=== PATIENT | female | born 1970 | race Caucasian/White ===

== ENCOUNTER 2017-03-06 09:00 | Inpatient (IN) | payer OTHER ==
[2017-03-13] MEDS ORDERED: Midazolam 2 MG/2 ML VIAL ONE (07:08)
[2017-03-13] MEDS ORDERED: Propofol 10 mg/ml Inj (20 ML) ONE (07:08)
[2017-03-13] MEDS ORDERED: ceFAZolin IV 2 gm in Dextrose 1 GM/50 ML BAG IVPB ONE (07:46)
[2017-03-13] MEDS ORDERED: Lactated Ringer's 1,000 ML IV ONE ×3 (07:57→13:00)
[2017-03-13] MEDS ORDERED: Bacitracin 150,000 UNIT in Sodium Chloride 0.9% Irrig 3,000 ML IR SCH (08:00)
[2017-03-13] MEDS ORDERED: Morphine 4 MG/ML VIAL ONE (10:43)
[2017-03-13] MEDS ORDERED: Lidocaine Hydrochloride 5 ML INJ ONE (10:48)
[2017-03-13] MEDS ORDERED: Neostigmine Methylsulfate 3mg/3ml Syringe IV ONE (10:49)
[2017-03-13] MEDS ORDERED: Phenylephrine 10 mg/ml Inj ONE (10:49)
[2017-03-13] MEDS ORDERED: Lactated Ringer's 1,000 ML IV SCH (11:30)
[2017-03-13] MEDS ORDERED: HYDROmorphone 0.5 mg/0.5 ml ISec IVP PRN ×2 (11:30→12:39)
[2017-03-13] MEDS ORDERED: HYDROmorphone 0.5 mg/0.5 ml ISec IVP ONE (12:22)
[2017-03-13] MEDS ORDERED: Sodium Chloride 0.9% 1,000 ML IV SCH (13:15)
[2017-03-13] MEDS ORDERED: ceFAZolin IV 2 gm in Dextrose 2 GM/100 ML BAG IVPB SCH (13:15)
[2017-03-13] MEDS ORDERED: Bupivacaine HCl 0.25% PF (10 ml) Inj ONE (15:08)
[2017-03-13] MEDS ORDERED: Albuterol HFA 90 mcg/actuation (8 g) IH PRN (15:45)
--- NOTE | 2017-03-13 15:50 | PCM.ANESB7 ---
Adductor Canal Block - Adductor Canal Block Date of Procedure: 03/13/17 Anesthiologist: Onel Pre-Procedure Diagnosis: s/p total right knee arthroplasty Post-Procedure Diagnosis: same Procedure Performed: Adductor Canal Block Right - Procedure Adductor Canal Block: The procedure was explained to the patient that it is for the post-operative pain management. Consent was obtained after a thorough discussion with the patient regarding the benefits and possible complications of local anesthetic adductor canal block of the femoral nerve. Standard monitors applied to the patient. Time-out was held with the PACU nurse to confirm the appropriate block. After applying supplemental oxygen, the patient was placed in supine position with and the operative leg was flexed slightly at the knee and externally rotated as needed, and was kept anatomically stable. The mid-thigh of the right lower extremity was exposed. The ultrasound transducer was then applied transversely along the medial aspect, about midway down the thigh and the femoral artery and vein were identified in appropriate relation with the sartorius muscle. At this time, the femoral nerve was visualized lateral to the femoral artery within the canal. After thorough identification, this area area was prepped with Chloroprep solution and 1 % Lidocaine was injected subcutaneously for topical anesthesia. At this point, a #22 gauge Stimuplex 4-inch needle was inserted in-plane in a [id number] orientation, and advanced toward the femoral nerve. Advancement was performed carefully under direct ultrasound visualization. After negative aspiration, 5cc of 0.25% Bupivacaine was injected and this was followed with 25cc of 0.25% Bupivacaine. Under ultrasound guidance the local anesthetics were observed spreading around the femoral nerve. The needle was removed intact and sterile dressing was applied. The patient had stable vital signs, was conscious and in no apparent distress. The patient tolerated the femoral nerve block well with stable vital signs
--- NOTE | 2017-03-13 15:50 | PCM.SURG1 ---
Surgeon's Initial Post Op Note - Surgeon's Notes Surgeon: Princess Silk Screen Printer Machine: NELSON May/ 2nd Kaleb Cavazos Type of Anesthesia: General Endo Anesthesia Administered By: Dr Ewing Pre-Operative Diagnosis: Tricompartmental O/A L knee Operative Findings: tricompartmental O/A LR Knee. anterior and posterior compartment synovitis. posterior capsular contracture. lateral retinacular contracture Post-Operative Diagnosis: as above Operation Performed: Left TKR. anterior and posterior synovectomy. posterior capsular release. lateral patella retinacular release/. computer navigation Specimen/Specimens Removed: synovium/bone/ cartilage Estimated Blood Loss: EBL {In ML}: 150 Blood Products Given: N/A Drains Used: No Drains Post-Op Condition: Good Date of Surgery/Procedure: 03/13/17 Time of Surgery/Procedure: 08:55 (time in room/aneathesia indcution time 7:57)
--- NOTE | 2017-03-13 15:56 | CP.PCM.HP ---
<Graeme Desai - Last Filed: 03/13/17 16:09> History of Present Illness - History of Present Illness History of Present Illness: HPI: Patient is a 46 y/o F with past medical hx of left breast cancer, hyperlipidemia, depression, hemorrhoids, left lung tumor, glaucoma, lymphedema, who presents s/p right knee arthroplasty. She states this winter she fell on her right knee and injured it. She reports being a cancer survivor and having a left mastectomy, chemotherapy, and radiation. She reports removal of a tumor on left of abdomen with benign findings, left breast cancer biopsy and mastectomy in 2013 and breast reconstruction. She currently denies any chest pain, SOB, fever, chills, nausea, vomiting, recent travel. She states her knee pain is currently controlled. PMD: Dr. Skinner Past medical hx: as stated above Past surgical hx: right knee arthroplasty, left mastectomy with reconstruction, left lumpectomy Social hx: denies alcohol, tobacco, or drug use Family hx: father had MA Allergies: NKDA Present on Admission - Present on Admission Any Indicators Present on Admission: No Review of Systems - Constitutional Constitutional: absent: Chills, Fever, Weakness - EENT Eyes: absent: Change in Vision, Photophobia Ears: absent: Decreased Hearing Nose/Mouth/Throat: absent: Dysphagia, Odynophagia, Sore Throat - Breasts Breasts: absent: Pain, Skin Changes - Cardiovascular Cardiovascular: absent: Chest Pain, Edema - Respiratory Respiratory: absent: Cough, Dyspnea - Gastrointestinal Gastrointestinal: absent: Abdominal Pain, Constipation, Diarrhea, Nausea, Vomiting - Genitourinary Genitourinary: Urinary Frequency - Musculoskeletal Musculoskeletal: Other (right knee pain). absent: Back Pain, Joint Swelling - Integumentary Integumentary: absent: Lesions, Rash - Neurological Neurological: absent: Dizziness, Numbness, Focal Weakness, Weakness - Psychiatric Psychiatric: absent: Anxiety, Depression - Endocrine Endocrine: absent: Palpitations Past Patient History - Infectious Disease Hx of Infectious Diseases: None - Tetanus Immunizations Tetanus Immunization: Unknown - Past Medical History & Family History Past Medical History?: Yes - Past Social History Smoking Status: Never Smoked Chewing Tobacco Use: No Cigar Use: No Alcohol: None Drugs: Denies Home Situation {Lives}: With Family - CARDIAC Hx Hypercholesterolemia: Yes Hx Hypertension: Yes - PULMONARY Hx Respiratory Disorders: Yes (lung nodule) - NEUROLOGICAL Hx Neurological Disorder: No - HEENT Hx HEENT Problems: Yes Hx Glaucoma: Yes - RENAL Hx Chronic Kidney Disease: No - ENDOCRINE/METABOLIC Hx Endocrine Disorders: No - HEMATOLOGICAL/ONCOLOGICAL Hx Blood Disorders: Yes Hx Cancer: Yes Hx Chemotherapy: Yes (plus radiation) - MUSCULOSKELETAL/RHEUMATOLOGICAL Hx Musculoskeletal Disorders: Yes Hx Osteoarthritis: Yes - GASTROINTESTINAL Hx Gastrointestinal Disorders: Yes (removal mass gastric) - GENITOURINARY/GYNECOLOGICAL Hx Incontinence: Yes - PSYCHIATRIC Hx Psychophysiologic Disorder: Yes (psychotic disorder) Hx Depression: Yes - SURGICAL HISTORY Hx Surgeries: Yes Hx Arthroscopy: Yes Hx Mastectomy: Yes (left breast breast bx breast reconstruction ) Other/Comment: removal gastric mass - ANESTHESIA Hx Anesthesia: Yes Meds Home Medications: Home Medication List Medication Instructions Recorded Confirmed Type oxyCODONE/Acetaminophen [Percocet 2 tab PO Q4H PRN tab 03/17/17 Rx 5/325 mg Tab] Allergies/Adverse Reactions: Allergies Allergy/AdvReac Type Severity Reaction Status Date / Time No Known Allergies Allergy Verified 03/13/17 07:02 Physical Exam - Constitutional Appears: Non-toxic, No Acute Distress - Head Exam Head Exam: ATRAUMATIC, NORMOCEPHALIC - Eye Exam Eye Exam: EOMI, Normal appearance Pupil Exam: NORMAL ACCOMODATION, PERRL - ENT Exam ENT Exam: Mucous Membranes Moist, Normal Exam - Neck Exam Neck exam: Positive for: Normal Inspection - Respiratory Exam Respiratory Exam: Clear to Auscultation Bilateral, NORMAL BREATHING PATTERN. absent: Rales, Rhonchi, Wheezes - Cardiovascular Exam Cardiovascular Exam: REGULAR RHYTHM, +S1, +S2. absent: Gallop, Rubs - GI/Abdominal Exam GI & Abdominal Exam: Normal Bowel Sounds, Soft. absent: Distended - Extremities Exam Extremities exam: Negative for: normal inspection (right knee wrapped and bandaged) - Neurological Exam Neurological exam: Alert, CN II-XII Intact, Oriented x3 - Psychiatric Exam Psychiatric exam: Normal Affect, Normal Mood - Skin Skin Exam: Dry, Intact, Warm Results - Vital Signs Recent Vital Signs: Last Vital Signs Temp 99.4 F 03/13/17 12:00 Pulse 84 03/13/17 13:00 Resp 14 03/13/17 13:00 BP 112/59 L 03/13/17 13:00 Pulse Ox 98 03/13/17 13:00 - Labs Labs: Laboratory Results - last 24 hr 03/13/17 07:41 Blood Type O POSITIVE Antibody Screen Negative Assessment & Plan - Assessment and Plan (Free Text) Assessment: 46 y/o F presents s/p right knee athroplasty Plan: Knee pain s/p arthroplasty * pain control as per ortho * currently on dilaudid 0.5 Q4H and percocet 5/325 2Q4prn * anticoagulation as per ortho * f/u hgb and hct in AM Bipolar disorder disorder/Depression * currently assymptomatic * resume home abilify and celexa Hyperlipidemia * lipid panel in AM * continue home Lipitor Glaucoma * continue lantanoprost drops Left breast cancer * continue multivitamin and folic acid * as per patient, reported as cured PPX * dilaudid and oxycodone for pain * anticoagulation as per orhtho * protonix Assessment and plan discussed with attending physician. <Araceli Sidhu V - Last Filed: 03/23/17 22:44> Results - Vital Signs Recent Vital Signs: Last Vital Signs Temp 98 F 03/17/17 13:17 Pulse 97 H 03/17/17 13:17 Resp 20 03/17/17 13:17 BP 106/70 03/17/17 13:17 Pulse Ox 97 03/17/17 13:17 - Labs Result Diagrams: 03/17/17 06:06 03/17/17 06:06 Attending/Attestation - Attestation I have personally seen and examined this patient.: Yes I have fully participated in the care of the patient.: Yes I have reviewed all pertinent clinical information: Yes Notes (Text): This is late computer entry for 03/13/17. Patient seen, examined, and case discussed with day-time resident. Patient seen in the PACU on 03/13/17 with the resident status post right knee arthoplasty with orthopedic, Dr Sánchez. Patient is pleasant, awake, and alert, and conversant at bedside. Patient has a prior history of bipolar disorder, hyperlipidemia, glaucoma, and breast cancer survivor. Patient's preoperative medical clearance including labwork prior to OR reviewed in the chart and medications reconciled with the resident. Anticoagulation and pain management per surgeon. Assessment/Plan 1) Right knee pain s/p arthroplasty POD 0 for history of degenerative joint disease * Orthopedic: Dr. Sánchez on board-->help appreciated * pain management per orthopedic:dilaudid 0.5 Q4H and percocet 5/325 2 tabs Q4prn * anticoagulation to be determined by ortho * f/u hgb and hct in AM 2) Bipolar disorder disorder/Depression * currently asymptomatic * resume home medications: abilify and celexa 3) Hyperlipidemia * lipid panel in AM * continue home Lipitor; Lipitor not available on hospital formulary to be converted to Crestor at equivalent dosage 4) History of Glaucoma * continue home medication: lantanoprost drops 5) History or breast cancer * continue multivitamin and folic acid * as per patient, reported as cured * held Aromatase given patient is post-operative POD 0 * surgical scar over left breast evident 6) PPX * Pain management per orthopedics * anticoagulation as per orthopedic * protonix 40mg IV q daily
--- NOTE | 2017-03-13 16:38 | RAD ---
Indication: Postop knee replacement Comparison: None available Two views, right knee Findings: The patient is status post right knee total arthroplasty. Alignment appears satisfactory. Soft tissue swelling, subcutaneous emphysema, and surgical foreign compatible with recent postoperative history Impression: Status post right arthroplasty as above.
[2017-03-13] MEDS: Oxycodone/Acetaminophen 5/325 mg Tab PO PRN (21:16)
[2017-03-13] MEDS: Latanoprost 2.5 ml Opht Soln OU SCH (22:42)
[2017-03-14] MEDS: Lactated Ringer's 1,000 ML IV SCH ×2 (01:45→11:33)
[2017-03-14 07:11] LABS: HEMATOCRIT 31.4 % (34.0-47.0); MEAN CELL VOLUME 80.5 fL (81.0-99.0); MEAN CORPUSCULAR HEMOGLOBIN 26.4 pg (27.0-31.0); MEAN CORPUSCULAR HGB CONC 32.8 g/dL (33.0-37.0); MEAN PLATELET VOLUME 9.1 fL (7.2-11.7); RED CELL DISTRIBUTION WIDTH 17.4 % (11.5-14.5); WHITE BLOOD COUNT 12.5 K/uL (4.8-10.8)
[2017-03-14 07:30] LABS: CHLORIDE 103 mmol/L (98-107)
[2017-03-14 07:31] LABS: POTASSIUM 3.7 mmol/L (3.6-5.2); SODIUM 136 mmol/L (132-148)
[2017-03-14 07:33] LABS: ALB/GLOB RATIO 0.9 (1.0-2.1); ALKALINE PHOSPHATASE 89 U/L (38-126); AST/SGOT 18 U/L (14-36); BILIRUBIN,TOTAL 0.3 mg/dL (0.2-1.3); BLOOD UREA NITROGEN 11 mg/dL (7-17); CARBON DIOXIDE 25 mmol/L (22-30); CHOLESTEROL 103 mg/dL (0-199); GFR AFRICAN-AMERICAN > 60; GLUCOSE,RANDOM 96 mg/dL (65-105); TOTAL PROTEIN 6.1 g/dL (6.3-8.3)
[2017-03-14 07:34] LABS: ALT/SGPT 30 U/L (9-52)
[2017-03-14] MEDS: HYDROmorphone 0.5 mg/0.5 ml ISec IVP PRN ×2 (07:43→22:14)
--- NOTE | 2017-03-14 08:19 | CP.PCM.PN ---
Subjective - Date & Time of Evaluation Date of Evaluation: 03/14/17 Time of Evaluation: 08:13 - Subjective Subjective: Patient states pain in her knee is controlled. Denies CP/SOB/dizziness. Denies numbness/tingling. Objective - Vital Signs/Intake and Output Vital Signs (last 24 hours): Temp Pulse Resp BP Pulse Ox 98.1 F 86 20 98/64 L 100 03/14/17 04:50 03/14/17 04:50 03/14/17 04:50 03/14/17 04:50 03/14/17 04:50 Intake and Output: 03/14/17 03/14/17 06:59 18:59 Intake Total 850 Balance 850 - Medications Medications: Current Medications Albuterol (Ventolin Hfa 90 Mcg/Actuation (8 G)) 2 puff IH RQID PRN PRN Reason: Shortness of Breath Aripiprazole (Abilify) 2 mg PO BID [facility] [place] Last Admin: 03/13/17 20:11 Dose: 2 mg Citalopram Hydrobromide (Celexa) 40 mg PO DAILY [facility] [place] Docusate Sodium (Colace) 100 mg PO BID [facility] [place] Last Admin: 03/13/17 18:45 Dose: 100 mg Folic Acid (Folic Acid) 1 mg PO DAILY [facility] [place] Hydromorphone HCl (Dilaudid) 0.5 mg IVP Q5M PRN PRN Reason: Pain, severe (8-10) Hydromorphone HCl (Dilaudid) 0.5 mg IVP Q4H PRN PRN Reason: Pain, severe (8-10) Last Admin: 03/14/17 07:43 Dose: 0.5 mg Lactated Ringer's (Lactated Ringer's) 1,000 mls @ 100 mls/hr IV .Q10H [facility] [place] Last Admin: 03/14/17 01:45 Dose: Not Given Latanoprost (Xalatan Opht) 0 ml OU HS [facility] [place] Last Admin: 03/13/17 22:42 Dose: 1 ml Multivitamins (Hexavitamin) 1 tab PO DAILY [facility] [place] Ondansetron HCl (Zofran Inj) 4 mg IVP ONCE PRN PRN Reason: Nausea/Vomiting Oxycodone/Acetaminophen (Percocet 5/325 Mg Tab) 2 tab PO Q4H PRN PRN Reason: Pain, severe (8-10) Stop: 03/16/17 13:10 Last Admin: 03/13/17 21:16 Dose: 2 tab Pantoprazole Sodium (Protonix Ec Tab) 40 mg PO DAILY [facility] Rosuvastatin Calcium (Crestor) 5 mg PO HS [facility] Last Admin: 03/13/17 21:16 Dose: 5 mg - Labs Labs: 03/14/17 07:04 03/14/17 07:04 - Extremities Exam Additional comments: RLE: +ROM ankle DF/PF toes flex/ext, sensation intact, calves soft NT neg homans. Dressing intact, no visible drainage. Assessment and Plan (1) Primary osteoarthritis of right knee Assessment & Plan: POD#1 s/p right TKR _PT/OT -VTE proph with aspirin 81mg BID per Dr. Sánchez -d/c planning for 03/15 -operative dressing to be changed on 03/20, WBAT RLE, knee immobilizer at night, may remove during day, patient to f/u approx 10 days in office upon discharge -d/w Dr. Sánchez, agrees with above Status: Acute
[2017-03-14] MEDS: Multiple Vitamins Tab PO SCH (09:35)
[2017-03-14] MEDS: Pantoprazole 40 mg EC Tab PO SCH (09:35)
--- NOTE | 2017-03-14 10:29 | OP ---
PROCEDURE DATE: 03/13/2017 PREOPERATIVE DIAGNOSIS: Tricompartmental osteoarthritis of right knee. POSTOPERATIVE DIAGNOSES: 1. Tricompartmental osteoarthritis of right knee. 2. Posterior capsular contracture. 3. Lateral patellar retinacular contracture. PROCEDURES: 1. Total knee replacement arthroplasty, right. 2. Anterior and posterior synovectomy. 3. Posterior capsular release. 4. Lateral patellar retinacular release. SURGEON: Preet Sánchez MD. [employer] SALES REPRESENTATIVE: Charlotte Amador, Certified Registered Nursing Rug Cutter Helper. SECOND POWER PLANT ASSISTANT: Dr. Ismael Cavazos, third year medical student. ANESTHESIA: General endotracheal anesthesia. COMPLICATIONS: None. DRAINS: None. OPERATIVE INDICATION: The patient is a 46-year-old woman with severe pain in the knee. She lives in a [facility] setting. She can no longer stand the discomfort. The patient was refractory to conser vative approach consisting of intraarticular injection, activity modification and therapy. Pros, con s, risks and benefits of surgical approach were discussed. The possibility of mechanical failure, in fection, thromboembolic disease, secondary or tertiary surgery is discussed. The patient can no long er stand the discomfort and wished the surgery to be accomplished. Informed consent is obtained in t he presence of her [facility] monitor. OPERATIVE PROCEDURE: After having obtained informed consent in the above fashion, after having ident ified side, site and procedure and a critical pause/timeout, after the satisfactory induction of the anesthetic, the patient identified as Stella Peoples, in the supine position with all bony prominences well padded, the right lower extremity is prepped and free draped in the usual fashion for lower ext remity surgery. The tourniquet had been applied, but is not yet inflated. After exsanguinating the limb using a 6-inch Esmarch bandage, the tourniquet which had been applied is inflated to 350 mmHg. A 6-inch straight midline approach is made to the knee. The skin incision is carried down through th e skin and subcutaneous tissue. Hemostasis controlled with the Aquamantys. Medial arthrotomy is acc omplished. Dissection is carried around posteromedially to the direct head of the semimembranous ten don. A portion of the patella ligament is elevated. Anterior and posterior cruciate ligaments are e xcised. Medial and lateral meniscectomies are accomplished. The tibia is dislocated anteriorly. A portion of the iliotibial band insertion of the lateral aspect of the tibia is released. The initial osteotomy of the arthroplasty is accomplished on the tibial side. This having been accomplished, th e navigation is affixed. The sensor and the accelerometer are placed. The medial and lateral malleo li are registered. The office is registered and the cut is set to 0 degrees valgus, 3.5 degrees post erior slope. The osteotomy is cut to 10 mm below the more prominent side. Osteotomy is accomplished at this point in time. Guides to rotation of the lateral aspect of the tibial condyle, mid malleola r axis, medial third of the tibial tuberosity, proximal tibia is prepared. Attention is turned to th e femur. Notch osteophytes, border osteophytes are debrided. The navigation pin is placed about the intercondylar notch. The distal cutting guide is set to 10 mm and again, accelerometer and sensor a re used to help locate the hip center and the osteotomy is accomplished 10 mm distally. Distal femor al osteotomy having been accomplished, anterior and posterior synovectomy is accomplished at this poi nt in time. A #3 cemented femoral component is aligned along the epicondylar axis. Anterior and pos terior femoral osteotomies are accomplished as well as chamfer cuts. This having been accomplished, the posterior capsule is elevated. Anterior and posterior synovectomies had been accomplished. Late ral patellar retinacular release is released as well. This having been accomplished, trialing is acc omplished with a #3 cemented femoral component, #3 cemented tibial component with a 12 mm polyethylen e. Attention is turned to the patella. Lateral patellar retinacular release is accomplished. Blanc la girth is measured. A freehand patellar osteotomy is accomplished. The patella is prepared for a #34 patella. Flexion/extension balance is found to be excellent. At this point in time, hemostasis is controlled with the Aquamantys. The femur, tibia and patella are prepared. The #3 cemented femor al component is applied, the #3 cemented tibial tray, the 34 mm patella. The wound is thoroughly irr igated. Tourniquet is deflated. Position is found to be excellent. Flexion/extension balance is ex cellent. Patellar balance is excellent. The wound is thoroughly irrigated. Closure is in layers wi th #2 Quill followed by Vicryl, #0 Quill, foreign for skin. No Hemovac is employed. Blood loss appr oximately 100 mL. Postoperative x-rays reveal acceptable position of the construct. Preet Sánchez MD cc: [id number] TT: 03/14/2017 10:29:00 tn
[2017-03-14] MEDS ORDERED: Sodium Chloride 0.9% 1,000 ML IV ONE (10:50)
[2017-03-14] MEDS: Oxycodone/Acetaminophen 5/325 mg Tab PO PRN ×2 (15:14→23:58)
--- NOTE | 2017-03-14 20:44 | CP.PCM.PN ---
<Graeme Desai - Last Filed: 03/14/17 20:41> Subjective - Date & Time of Evaluation Date of Evaluation: 03/14/17 Time of Evaluation: 07:00 - Subjective Subjective: Dr. Desai PGY 1Hospitalist Note Patient seen and evaluated at bedside. She states she has some knee tenderness but its well controlled. She reports being hungry and is awaiting dinner. She is aware that she will need to be discharged to a rehab facility for strengthening. She denies any fever, chills, nausea, vomitning, diarrhea, or cosntipation. Per nursing, no adverse events over night. Objective - Vital Signs/Intake and Output Vital Signs (last 24 hours): Temp Pulse Resp BP Pulse Ox 98.8 F 85 18 115/74 98 03/14/17 15:36 03/14/17 15:36 03/14/17 15:36 03/14/17 15:36 03/14/17 15:36 - Medications Medications: Current Medications Albuterol (Ventolin Hfa 90 Mcg/Actuation (8 G)) 2 puff IH RQID PRN PRN Reason: Shortness of Breath Aripiprazole (Abilify) 2 mg PO BID [facility] Last Admin: 03/14/17 18:29 Dose: 2 mg Aspirin (Ecotrin) 81 mg PO Q12 [facility] Last Admin: 03/14/17 09:36 Dose: 81 mg Citalopram Hydrobromide (Celexa) 40 mg PO DAILY [facility] Last Admin: 03/14/17 09:35 Dose: 40 mg Docusate Sodium (Colace) 100 mg PO BID [facility] Last Admin: 03/14/17 18:28 Dose: 100 mg Folic Acid (Folic Acid) 1 mg PO DAILY [facility] Last Admin: 03/14/17 09:36 Dose: 1 mg Hydromorphone HCl (Dilaudid) 0.5 mg IVP Q5M PRN PRN Reason: Pain, severe (8-10) Hydromorphone HCl (Dilaudid) 0.5 mg IVP Q4H PRN PRN Reason: Pain, severe (8-10) Last Admin: 03/14/17 07:43 Dose: 0.5 mg Lactated Ringer's (Lactated Ringer's) 1,000 mls @ 100 mls/hr IV .Q10H [facility] Last Admin: 03/14/17 11:33 Dose: Not Given Latanoprost (Xalatan Opht) 0 ml OU HS [facility] Last Admin: 03/13/17 22:42 Dose: 1 ml Multivitamins (Hexavitamin) 1 tab PO DAILY [facility] Last Admin: 03/14/17 09:35 Dose: 1 tab Ondansetron HCl (Zofran Inj) 4 mg IVP ONCE PRN PRN Reason: Nausea/Vomiting Oxycodone/Acetaminophen (Percocet 5/325 Mg Tab) 2 tab PO Q4H PRN PRN Reason: Pain, severe (8-10) Stop: 03/16/17 13:10 Last Admin: 03/14/17 15:14 Dose: 2 tab Pantoprazole Sodium (Protonix Ec Tab) 40 mg PO DAILY [facility] Last Admin: 03/14/17 09:35 Dose: 40 mg Rosuvastatin Calcium (Crestor) 5 mg PO [facility] Last Admin: 03/13/17 21:16 Dose: 5 mg - Labs Labs: 03/14/17 07:04 03/14/17 07:04 - Constitutional Appears: Non-toxic, No Acute Distress - Head Exam Head Exam: ATRAUMATIC, NORMAL INSPECTION - Eye Exam Eye Exam: EOMI, Normal appearance, PERRL Pupil Exam: NORMAL ACCOMODATION, PERRL - ENT Exam ENT Exam: Mucous Membranes Moist, Normal Oropharynx - Neck Exam Neck Exam: Normal Inspection. absent: Tenderness - Respiratory Exam Respiratory Exam: Clear to Ausculation Bilateral, NORMAL BREATHING PATTERN. absent: Rales, Rhonchi, Wheezes - Cardiovascular Exam Cardiovascular Exam: REGULAR RHYTHM, +S1, +S2 - GI/Abdominal Exam GI & Abdominal Exam: Soft, Normal Bowel Sounds. absent: Tenderness - Extremities Exam Extremities Exam: Normal Capillary Refill. absent: Normal Inspection (right knee in brace with icepacks), Pedal Edema, Tenderness - Neurological Exam Neurological Exam: Alert, Awake, CN II-XII Intact, Oriented x3 - Psychiatric Exam Psychiatric exam: Normal Affect, Normal Mood - Skin Skin Exam: Dry, Intact, Normal Color, Warm Assessment and Plan - Assessment and Plan (Free Text) Assessment: 46 y/o F presents s/p right knee athroplasty POD#1 Plan: Knee pain s/p arthroplasty * POD #1 * pain control as per ortho * currently on dilaudid 0.5 Q4H and percocet 5/325 2Q4prn * anticoagulation as per ortho * hgb and hct stable * continue to monitor Leukocytosis * likely secondary to surgery * patient is afebrile * will continue to monitor Bipolar disorder disorder/Depression * currently assymptomatic * continue home abilify and celexa Hyperlipidemia * lipid panel shows tri: 80, chol 103, LDL 45, HDL 34 * continue home Lipitor Glaucoma * continue lantanoprost drops Left breast cancer * continue multivitamin and folic acid * as per patient, reported as cured PPX * dilaudid and oxycodone for pain * anticoagulation as per orhtho * protonix Assessment and plan discussed with attending physician. <Araceli Sidhu V - Last Filed: 03/23/17 22:50> Objective - Vital Signs/Intake and Output Vital Signs (last 24 hours): Temp Pulse Resp BP Pulse Ox 98 F 97 H 20 106/70 97 03/17/17 13:17 03/17/17 13:17 03/17/17 13:17 03/17/17 13:17 03/17/17 13:17 - Labs Labs: 03/17/17 06:06 03/17/17 06:06 Attending/Attestation - Attestation I have personally seen and examined this patient.: Yes I have fully participated in the care of the patient.: Yes I have reviewed all pertinent clinical information, including history, physical exam and plan: Yes Notes (Text): This is a late computer entry for 03/14/17. Patient seen, examined and case discussed with day-time resident. Patient reports pain controlled with current pain regimen. Patient reports sensation over surgical site when checked on examination. Patient is reporting flatus post procedure. Assessment/Plan 1) Right knee pain s/p arthroplasty POD 1 for history of degenerative joint disease * Orthopedic: Dr. Sánchez on board-->help appreciated * pain management per orthopedic:dilaudid 0.5 Q4H and percocet 5/325 2 tabs Q4prn * Per ortho: patient started on Aspirin 81mg PO Q 12hour for anticoagulation * Patient has post-operative leukocytosis which is expected. * f/u case management regarding discharge planning 2) Bipolar disorder disorder/Depression * currently asymptomatic * resume home medications: abilify and celexa 3) Hyperlipidemia * triglycerides: 80, cholestrol 103, LDL 45, HDL 34 * Home medication: Lipitor not available on hospital formulary * Crestor 5mg POqHS 4) History of Glaucoma * continue home medication: lantanoprost drops 5) History or breast cancer * continue multivitamin and folic acid * as per patient, reported as cured * held Aromatase given patient is post-operative * surgical scar over left breast evident 6) PPX * Pain management per orthopedics * Aspirin 81mg PO Q 12hours * protonix 40mg PO daily
[2017-03-14] MEDS: Latanoprost 2.5 ml Opht Soln OU SCH (22:14)
--- NOTE | 2017-03-15 01:42 | CP.PCM.PN ---
<Marta Marrero - Last Filed: 03/15/17 01:53> Subjective - Date & Time of Evaluation Date of Evaluation: 03/15/17 Time of Evaluation: 01:53 - Subjective Subjective: PGY1 Medicine note for Dr. Sidhu Patient seen and examined at bedside. Patient reports her pain in her RLE is well controlled. Patient is POD #2 s/p R knee arthroplasty. She denies any headache, dizziness, fever, chills, chest pain, SOB, cough, abd pain, nausea, vomiting, bowel/bladder complaints, pain in her legs. She was complaining of some chapped lips. She is eating well. Objective - Vital Signs/Intake and Output Vital Signs (last 24 hours): Temp Pulse Resp BP Pulse Ox 99.7 F H 89 20 119/78 97 03/14/17 23:10 03/14/17 23:10 03/14/17 23:10 03/14/17 23:10 03/14/17 23:10 Intake and Output: 03/14/17 03/15/17 18:59 06:59 Intake Total 960 Balance 960 - Medications Medications: Current Medications Albuterol (Ventolin Hfa 90 Mcg/Actuation (8 G)) 2 puff IH RQID PRN PRN Reason: Shortness of Breath Aripiprazole (Abilify) 2 mg PO BID [facility] Last Admin: 03/14/17 18:29 Dose: 2 mg Aspirin (Ecotrin) 81 mg PO Q12 [facility] Last Admin: 03/14/17 22:13 Dose: 81 mg Citalopram Hydrobromide (Celexa) 40 mg PO DAILY [facility] Last Admin: 03/14/17 09:35 Dose: 40 mg Docusate Sodium (Colace) 100 mg PO BID [facility] Last Admin: 03/14/17 18:28 Dose: 100 mg Folic Acid (Folic Acid) 1 mg PO DAILY [facility] Last Admin: 03/14/17 09:36 Dose: 1 mg Hydromorphone HCl (Dilaudid) 0.5 mg IVP Q5M PRN PRN Reason: Pain, severe (8-10) Hydromorphone HCl (Dilaudid) 0.5 mg IVP Q4H PRN PRN Reason: Pain, severe (8-10) Last Admin: 03/14/17 22:14 Dose: 0.5 mg Lactated Ringer's (Lactated Ringer's) 1,000 mls @ 100 mls/hr IV .Q10H [facility] Last Admin: 03/14/17 11:33 Dose: Not Given Latanoprost (Xalatan Opht) 0 ml OU HS [facility] Last Admin: 03/14/17 22:14 Dose: 2.5 ml Multivitamins (Hexavitamin) 1 tab PO DAILY [facility] Last Admin: 03/14/17 09:35 Dose: 1 tab Ondansetron HCl (Zofran Inj) 4 mg IVP ONCE PRN PRN Reason: Nausea/Vomiting Oxycodone/Acetaminophen (Percocet 5/325 Mg Tab) 2 tab PO Q4H PRN PRN Reason: Pain, severe (8-10) Stop: 03/16/17 13:10 Last Admin: 03/14/17 23:58 Dose: 2 tab Pantoprazole Sodium (Protonix Ec Tab) 40 mg PO DAILY [facility] Last Admin: 03/14/17 09:35 Dose: 40 mg Rosuvastatin Calcium (Crestor) 5 mg PO [facility] Last Admin: 03/14/17 22:13 Dose: 5 mg - Labs Labs: 03/14/17 07:04 03/14/17 07:04 - Constitutional Appears: Non-toxic, No Acute Distress - Head Exam Head Exam: NORMAL INSPECTION - Eye Exam Eye Exam: Normal appearance. absent: Conjunctival injection, Scleral icterus - ENT Exam ENT Exam: Mucous Membranes Dry - Neck Exam Neck Exam: Full ROM, Normal Inspection - Respiratory Exam Respiratory Exam: Clear to Ausculation Bilateral, NORMAL BREATHING PATTERN. absent: Rales, Rhonchi, Wheezes - Cardiovascular Exam Cardiovascular Exam: REGULAR RHYTHM, +S1, +S2 - GI/Abdominal Exam GI & Abdominal Exam: Soft, Normal Bowel Sounds. absent: Tenderness - Extremities Exam Additional comments: Right knee in brace in place - Neurological Exam Neurological Exam: Alert, Awake, Oriented x3 - Psychiatric Exam Psychiatric exam: Normal Affect, Normal Mood - Skin Skin Exam: Dry, Intact, Normal Color, Warm Assessment and Plan - Assessment and Plan (Free Text) Assessment: 46 y/o F with past medical hx of left breast cancer, hyperlipidemia, depression, hemorrhoids, left lung tumor, glaucoma, lymphedema, who presents s/ p right knee arthroplasty Plan: Knee pain s/p arthroplasty * POD #2 * pain control as per ortho * currently on dilaudid 0.5 Q4H and percocet 5/325 2Q4prn * anticoagulation as per ortho * hgb and hct stable * continue to monitor Leukocytosis * likely secondary to surgery * patient is afebrile * will continue to monitor Bipolar disorder disorder/Depression * currently assymptomatic * continue home abilify and celexa Hyperlipidemia * lipid panel shows tri: 80, chol 103, LDL 45, HDL 34 * continue home Lipitor Glaucoma * continue lantanoprost drops Left breast cancer * continue multivitamin and folic acid * as per patient, reported as cured PPX * dilaudid and oxycodone for pain * anticoagulation as per orhtho * protonix * Patient will be D/C to [facility] Will discuss with Dr. Nahum Marrero PGY1 <Araceli Sidhu V - Last Filed: 03/23/17 22:54> Objective - Vital Signs/Intake and Output Vital Signs (last 24 hours): Temp Pulse Resp BP Pulse Ox 98 F 97 H 20 106/70 97 03/17/17 13:17 03/17/17 13:17 03/17/17 13:17 03/17/17 13:17 03/17/17 13:17 - Labs Labs: 03/17/17 06:06 03/17/17 06:06 Attending/Attestation - Attestation I have personally seen and examined this patient.: Yes I have fully participated in the care of the patient.: Yes I have reviewed all pertinent clinical information, including history, physical exam and plan: Yes Notes (Text): This is late computer entry for 03/15/17. Patient seen, examined, and case discussed with day-time resident. Patient denies acute complaints. Patient is pain controlled. Discussed with case management, patient is awaiting placement for discharge. Patient's white count downtrending; afebrile, likely inflammatory secondary to operative procedure. Assessment/Plan 1) Right knee pain s/p arthroplasty POD 2 for history of degenerative joint disease * Orthopedic: Dr. Sánchez on board-->help appreciated * pain management per orthopedic:dilaudid 0.5 Q4H and percocet 5/325 2 tabs Q4prn * Per ortho: patient started on Aspirin 81mg PO Q 12hour for anticoagulation * Patient has post-operative leukocytosis which is expected. * f/u case management regarding discharge planning 2) Bipolar disorder disorder/Depression * currently asymptomatic * resume home medications: abilify and celexa 3) Hyperlipidemia * triglycerides: 80, cholestrol 103, LDL 45, HDL 34 * Home medication: Lipitor not available on hospital formulary * Crestor 5mg POqHS 4) History of Glaucoma * continue home medication: lantanoprost drops 5) History or breast cancer * continue multivitamin and folic acid * as per patient, reported as cured * held Aromatase given patient is post-operative * surgical scar over left breast evident 6) PPX * Pain management per orthopedics * Aspirin 81mg PO Q 12hours * protonix 40mg PO daily * f/u case management regarding discharge planning * PT/OT per orthopedic recommendation
[2017-03-15] MEDS: HYDROmorphone 0.5 mg/0.5 ml ISec IVP PRN (05:01)
[2017-03-15] MEDS: Lactated Ringer's 1,000 ML IV SCH (05:27)
[2017-03-15 08:44] LABS: BASO % 0.3 % (0.0-2.0); HEMATOCRIT 31.4 % (34.0-47.0); LYMPH # 1.9 K/uL (1.0-4.3); MEAN CORPUSCULAR HGB CONC 32.5 g/dL (33.0-37.0); MONO # 0.7 K/uL (0.0-0.8); MONO % 5.9 % (0.0-10.0); WHITE BLOOD COUNT 11.3 K/uL (4.8-10.8)
[2017-03-15 09:18] LABS: CHLORIDE 96 mmol/L (98-107); SODIUM 134 mmol/L (132-148)
[2017-03-15 09:19] LABS: POTASSIUM 3.9 mmol/L (3.6-5.2)
[2017-03-15 09:20] LABS: BILIRUBIN,TOTAL 1.1 mg/dL (0.2-1.3); GFR AFRICAN-AMERICAN > 60
[2017-03-15 09:21] LABS: ALKALINE PHOSPHATASE 86 U/L (38-126); ALT/SGPT 17 U/L (9-52); AST/SGOT 26 U/L (14-36); BLOOD UREA NITROGEN 10 mg/dL (7-17); CARBON DIOXIDE 28 mmol/L (22-30); GLUCOSE,RANDOM 130 mg/dL (65-105); PHOSPHOROUS 3.4 mg/dL (2.5-4.5); TOTAL PROTEIN 6.8 g/dL (6.3-8.3)
[2017-03-15 09:22] LABS: CALCIUM 8.4 mg/dl (8.6-10.4); MAGNESIUM 1.7 mg/dL (1.6-2.3)
[2017-03-15] MEDS: Pantoprazole 40 mg EC Tab PO SCH (10:09)
[2017-03-15] MEDS: Multiple Vitamins Tab PO SCH (10:09)
[2017-03-15] MEDS: Oxycodone/Acetaminophen 5/325 mg Tab PO PRN ×2 (12:37→19:11)
[2017-03-15] MEDS: Latanoprost 2.5 ml Opht Soln OU SCH (22:08)
[2017-03-16 01:07] VITALS: RESP 20
--- NOTE | 2017-03-16 03:11 | CP.PCM.PN ---
<Marta Marrero - Last Filed: 03/16/17 03:08> Subjective - Date & Time of Evaluation Date of Evaluation: 03/16/17 Time of Evaluation: 03:08 - Subjective Subjective: PGY1 Medicine note for Dr. Sidhu Patient seen and examined at bedside. Patient reports pain in her RLE is well controlled. Patient is POD #3 s/p R knee arthroplasty. She denies any headache, dizziness, fever, chills, chest pain, SOB, cough, abd pain, nausea, vomiting, bowel/bladder complaints, pain in her legs. She is being seen by physical therapy. Objective - Vital Signs/Intake and Output Vital Signs (last 24 hours): Temp Pulse Resp BP Pulse Ox 99 F 98 H 20 100/70 95 03/16/17 00:15 03/16/17 00:15 03/16/17 00:15 03/16/17 00:15 03/16/17 00:15 Intake and Output: 03/15/17 03/16/17 18:59 06:59 Intake Total 400 500 Output Total 650 Balance 400 -150 - Medications Medications: Current Medications Albuterol (Ventolin Hfa 90 Mcg/Actuation (8 G)) 2 puff IH RQID PRN PRN Reason: Shortness of Breath Aripiprazole (Abilify) 2 mg PO BID [facility] Last Admin: 03/15/17 17:39 Dose: 2 mg Aspirin (Ecotrin) 81 mg PO Q12 [facility] Last Admin: 03/15/17 22:08 Dose: 81 mg Citalopram Hydrobromide (Celexa) 40 mg PO DAILY [facility] Last Admin: 03/15/17 10:09 Dose: 40 mg Docusate Sodium (Colace) 100 mg PO BID [facility] Last Admin: 03/15/17 17:39 Dose: 100 mg Folic Acid (Folic Acid) 1 mg PO DAILY [facility] Last Admin: 03/15/17 10:09 Dose: 1 mg Hydromorphone HCl (Dilaudid) 0.5 mg IVP Q5M PRN PRN Reason: Pain, severe (8-10) Hydromorphone HCl (Dilaudid) 0.5 mg IVP Q4H PRN PRN Reason: Pain, severe (8-10) Last Admin: 03/15/17 05:01 Dose: 0.5 mg Lactated Ringer's (Lactated Ringer's) 1,000 mls @ 100 mls/hr IV .Q10H [facility] Last Admin: 03/15/17 05:27 Dose: Not Given Latanoprost (Xalatan Opht) 0 ml OU HS [facility] Last Admin: 03/15/17 22:08 Dose: 1 ml Multivitamins (Hexavitamin) 1 tab PO DAILY [facility] Last Admin: 03/15/17 10:09 Dose: 1 tab Ondansetron HCl (Zofran Inj) 4 mg IVP ONCE PRN PRN Reason: Nausea/Vomiting Last Admin: 03/15/17 12:42 Dose: 4 mg Oxycodone/Acetaminophen (Percocet 5/325 Mg Tab) 2 tab PO Q4H PRN PRN Reason: Pain, severe (8-10) Stop: 03/16/17 13:10 Last Admin: 03/15/17 19:11 Dose: 2 tab Pantoprazole Sodium (Protonix Ec Tab) 40 mg PO DAILY [facility] Last Admin: 03/15/17 10:09 Dose: 40 mg Rosuvastatin Calcium (Crestor) 5 mg PO HS [facility] Last Admin: 03/15/17 22:08 Dose: 5 mg - Labs Labs: 03/15/17 08:30 03/15/17 08:30 - Constitutional Appears: Non-toxic, No Acute Distress - Head Exam Head Exam: NORMAL INSPECTION - Eye Exam Eye Exam: Normal appearance. absent: Conjunctival injection, Scleral icterus - ENT Exam ENT Exam: Mucous Membranes Moist - Neck Exam Neck Exam: Normal Inspection. absent: Tenderness - Respiratory Exam Respiratory Exam: Clear to Ausculation Bilateral, NORMAL BREATHING PATTERN. absent: Accessory Muscle Use, Rales, Rhonchi, Wheezes - Cardiovascular Exam Cardiovascular Exam: REGULAR RHYTHM, RRR, +S1, +S2 - GI/Abdominal Exam GI & Abdominal Exam: Soft, Normal Bowel Sounds. absent: Firm, Guarding, Rigid, Tenderness - Rectal Exam Rectal Exam: Deferred - Extremities Exam Additional comments: R knee brace in place LUE lymphedema - Neurological Exam Neurological Exam: Alert, Awake, Oriented x3 - Psychiatric Exam Psychiatric exam: Normal Affect, Normal Mood - Skin Skin Exam: Dry, Intact, Normal Color, Warm Assessment and Plan - Assessment and Plan (Free Text) Assessment: 46 y/o F with past medical hx of left breast cancer, hyperlipidemia, depression, hemorrhoids, left lung tumor, glaucoma, lymphedema, who presents s/ p right knee arthroplasty Plan: Knee pain s/p arthroplasty * POD #3 * pain control as per ortho * currently on dilaudid 0.5 Q4H and percocet 5/325 2Q4prn * anticoagulation as per ortho * hgb and hct stable * continue to monitor Leukocytosis * likely secondary to surgery * patient is afebrile * will continue to monitor Bipolar disorder disorder/Depression * currently assymptomatic * continue home abilify and celexa Hyperlipidemia * lipid panel shows tri: 80, chol 103, LDL 45, HDL 34 * continue home Lipitor Glaucoma * continue lantanoprost drops Left breast cancer * continue multivitamin and folic acid * as per patient, reported as cured PPX * dilaudid and oxycodone for pain * anticoagulation as per orhtho * protonix * Patient will be D/C to [facility] Will discuss with Dr. Nahum Marrero PGY1 <Araceli Sidhu V - Last Filed: 03/23/17 22:56> Objective - Vital Signs/Intake and Output Vital Signs (last 24 hours): Temp Pulse Resp BP Pulse Ox 98 F 97 H 20 106/70 97 03/17/17 13:17 03/17/17 13:17 03/17/17 13:17 03/17/17 13:17 03/17/17 13:17 - Labs Labs: 03/17/17 06:06 03/17/17 06:06 Attending/Attestation - Attestation I have personally seen and examined this patient.: Yes I have fully participated in the care of the patient.: Yes I have reviewed all pertinent clinical information, including history, physical exam and plan: Yes Notes (Text): This is a late computer entry for 03/16/17. Patient seen, examined, and case discussed with day-time resident. Patient denies acute complaints. Patient is pain controlled. F/u Case management regarding discharge planning Per ortho, patient is orthopedically stable for discharge Assessment/Plan 1) Right knee pain s/p arthroplasty POD 3 for history of degenerative joint disease * Orthopedic: Dr. Sánchez on board-->help appreciated * pain management per orthopedic:dilaudid 0.5 Q4H and percocet 5/325 2 tabs Q4prn * Per ortho: patient started on Aspirin 81mg PO Q 12hour for anticoagulation * Patient has post-operative leukocytosis which is expected. * f/u case management regarding discharge planning 2) Bipolar disorder disorder/Depression * currently asymptomatic * resume home medications: abilify and celexa 3) Hyperlipidemia * triglycerides: 80, cholestrol 103, LDL 45, HDL 34 * Home medication: Lipitor not available on hospital formulary * Crestor 5mg POqHS 4) History of Glaucoma * continue home medication: lantanoprost drops 5) History or breast cancer * continue multivitamin and folic acid * as per patient, reported as cured * held Aromatase given patient is post-operative * surgical scar over left breast evident 6) PPX * Pain management per orthopedics * Aspirin 81mg PO Q 12hours * protonix 40mg PO daily * f/u case management regarding discharge planning * PT/OT per orthopedic recommendation
[2017-03-16] MEDS: Oxycodone/Acetaminophen 5/325 mg Tab PO PRN ×2 (07:58→22:05)
[2017-03-16 08:09] LABS: BASO % 0.3 % (0.0-2.0); HEMATOCRIT 30.3 % (34.0-47.0); LYMPH # 1.8 K/uL (1.0-4.3); LYMPH % 15.1 % (20.0-40.0); MEAN CELL VOLUME 80.6 fL (81.0-99.0); MEAN CORPUSCULAR HEMOGLOBIN 25.6 pg (27.0-31.0); MEAN CORPUSCULAR HGB CONC 31.8 g/dL (33.0-37.0); MEAN PLATELET VOLUME 9.2 fL (7.2-11.7); MONO # 0.8 K/uL (0.0-0.8); MONO % 6.4 % (0.0-10.0); RED CELL DISTRIBUTION WIDTH 18.2 % (11.5-14.5); WHITE BLOOD COUNT 11.9 K/uL (4.8-10.8)
[2017-03-16 08:34] LABS: CHLORIDE 97 mmol/L (98-107); POTASSIUM 3.7 mmol/L (3.6-5.2); SODIUM 135 mmol/L (132-148)
[2017-03-16 08:36] LABS: BILIRUBIN,TOTAL 0.9 mg/dL (0.2-1.3); GFR AFRICAN-AMERICAN > 60
[2017-03-16 08:37] LABS: ALKALINE PHOSPHATASE 86 U/L (38-126); ALT/SGPT 20 U/L (9-52); AST/SGOT 18 U/L (14-36); BLOOD UREA NITROGEN 14 mg/dL (7-17); CARBON DIOXIDE 29 mmol/L (22-30); GLUCOSE,RANDOM 105 mg/dL (65-105); PHOSPHOROUS 3.8 mg/dL (2.5-4.5)
[2017-03-16 08:38] LABS: CALCIUM 8.7 mg/dl (8.6-10.4)
[2017-03-16] MEDS: Pantoprazole 40 mg EC Tab PO SCH (10:22)
[2017-03-16] MEDS: Multiple Vitamins Tab PO SCH (10:22)
--- NOTE | 2017-03-16 11:06 | CP.PCM.PN ---
Subjective - Date & Time of Evaluation Date of Evaluation: 03/16/17 Time of Evaluation: 11:00 - Subjective Subjective: PD #3: pt with no post op discomfort cc- pt with minimal post op discomfort Objective - Vital Signs/Intake and Output Vital Signs (last 24 hours): Temp Pulse Resp BP Pulse Ox 99.5 F 108 H 20 99/56 L 94 L 03/16/17 09:30 03/16/17 09:30 03/16/17 09:30 03/16/17 09:30 03/16/17 09:30 Intake and Output: 03/16/17 03/16/17 06:59 18:59 Intake Total 500 Output Total 650 Balance -150 - Medications Medications: Current Medications Albuterol (Ventolin Hfa 90 Mcg/Actuation (8 G)) 2 puff IH RQID PRN PRN Reason: Shortness of Breath Aripiprazole (Abilify) 2 mg PO BID [facility] Last Admin: 03/16/17 10:22 Dose: 2 mg Aspirin (Ecotrin) 81 mg PO Q12 [facility] Last Admin: 03/16/17 10:22 Dose: 81 mg Citalopram Hydrobromide (Celexa) 40 mg PO DAILY [facility] Last Admin: 03/16/17 10:24 Dose: 40 mg Docusate Sodium (Colace) 100 mg PO BID [facility] Last Admin: 03/16/17 10:22 Dose: 100 mg Folic Acid (Folic Acid) 1 mg PO DAILY [facility] Last Admin: 03/16/17 10:21 Dose: 1 mg Hydromorphone HCl (Dilaudid) 0.5 mg IVP Q5M PRN PRN Reason: Pain, severe (8-10) Hydromorphone HCl (Dilaudid) 0.5 mg IVP Q4H PRN PRN Reason: Pain, severe (8-10) Last Admin: 03/15/17 05:01 Dose: 0.5 mg Lactated Ringer's (Lactated Ringer's) 1,000 mls @ 100 mls/hr IV .Q10H [facility] Last Admin: 03/15/17 05:27 Dose: Not Given Latanoprost (Xalatan Opht) 0 ml OU HS [facility] Last Admin: 03/15/17 22:08 Dose: 1 ml Multivitamins (Hexavitamin) 1 tab PO DAILY [facility] Last Admin: 03/16/17 10:22 Dose: 1 tab Ondansetron HCl (Zofran Inj) 4 mg IVP ONCE PRN PRN Reason: Nausea/Vomiting Last Admin: 03/15/17 12:42 Dose: 4 mg Oxycodone/Acetaminophen (Percocet 5/325 Mg Tab) 2 tab PO Q4H PRN PRN Reason: Pain, severe (8-10) Stop: 03/16/17 13:10 Last Admin: 03/16/17 07:58 Dose: 2 tab Pantoprazole Sodium (Protonix Ec Tab) 40 mg PO DAILY [facility] Last Admin: 03/16/17 10:22 Dose: 40 mg Rosuvastatin Calcium (Crestor) 5 mg PO HS [facility] Last Admin: 03/15/17 22:08 Dose: 5 mg - Labs Labs: 03/16/17 08:02 03/16/17 08:02 - Skin Additional comments: Obj systemic- wnl no eveidence for DVT/thrombembolic diseaese/ PE Musculoskekltal stance/gait- defrred dressing dry and intact orthopedically stable Xrays- reveal acceptable position of construct Assessment and Plan - Assessment and Plan (Free Text) Assessment: A- s/p TKR - excellent progress Plan: P- Orthopedivcally stable for d/c full weight bearing with walker
[2017-03-16] MEDS ORDERED: Oxycodone/Acetaminophen 5/325 mg Tab PO PRN ×2 (17:16→17:20)
[2017-03-16] MEDS: Latanoprost 2.5 ml Opht Soln OU SCH (22:08)
[2017-03-17] MEDS: Oxycodone/Acetaminophen 5/325 mg Tab PO PRN (04:51)
[2017-03-17 06:19] LABS: BASO % 0.3 % (0.0-2.0); EOS % 0.1 % (0.0-4.0); HEMATOCRIT 29.9 % (34.0-47.0); LYMPH # 2.2 K/uL (1.0-4.3); MEAN CELL VOLUME 80.9 fL (81.0-99.0); MEAN CORPUSCULAR HEMOGLOBIN 26.2 pg (27.0-31.0); MEAN CORPUSCULAR HGB CONC 32.3 g/dL (33.0-37.0); MEAN PLATELET VOLUME 9.3 fL (7.2-11.7); MONO # 0.6 K/uL (0.0-0.8); MONO % 5.6 % (0.0-10.0); RED CELL DISTRIBUTION WIDTH 18.1 % (11.5-14.5); WHITE BLOOD COUNT 10.9 K/uL (4.8-10.8)
[2017-03-17 06:30] LABS: CHLORIDE 99 mmol/L (98-107); POTASSIUM 3.8 mmol/L (3.6-5.2); SODIUM 135 mmol/L (132-148)
[2017-03-17 06:32] LABS: ALB/GLOB RATIO 0.9 (1.0-2.1); AST/SGOT 21 U/L (14-36); BILIRUBIN,TOTAL 0.8 mg/dL (0.2-1.3); CARBON DIOXIDE 31 mmol/L (22-30); GFR AFRICAN-AMERICAN > 60; TOTAL PROTEIN 6.8 g/dL (6.3-8.3)
[2017-03-17 06:33] LABS: ALKALINE PHOSPHATASE 96 U/L (38-126); ALT/SGPT 20 U/L (9-52); CALCIUM 8.3 mg/dl (8.6-10.4); GLUCOSE,RANDOM 102 mg/dL (65-105); PHOSPHOROUS 3.8 mg/dL (2.5-4.5)
[2017-03-17 06:35] LABS: BLOOD UREA NITROGEN 15 mg/dL (7-17)
[2017-03-17] MEDS ORDERED: Sodium Chloride 0.9% 1,000 ML IV SCH (08:30)
[2017-03-17 09:25] VITALS: O2SAT 97
[2017-03-17] MEDS: Pantoprazole 40 mg EC Tab PO SCH (09:46)
[2017-03-17] MEDS: Multiple Vitamins Tab PO SCH (09:47)
--- NOTE | 2017-03-17 11:36 | CP.PCM.DIS ---
<Graeme Desai - Last Filed: 03/18/17 19:58> Provider - Provider Date of Admission: 03/13/17 06:40 Attending physician: Preet Sánchez III, MD Consults: Dr. Preet Sánchez Time Spent in preparation of Discharge (in minutes): 35 Hospital Course - Lab Results Lab Results: Most Recent Lab Values WBC 10.9 K/uL (4.8-10.8) H 03/17/17 06:06 RBC 3.69 Mil/uL (3.80-5.20) L 03/17/17 06:06 Hgb 9.7 g/dL (11.0-16.0) L 03/17/17 06:06 Hct 29.9 % (34.0-47.0) L 03/17/17 06:06 MCV 80.9 fL (81.0-99.0) L 03/17/17 06:06 MCH 26.2 pg (27.0-31.0) L 03/17/17 06:06 MCHC 32.3 g/dL (33.0-37.0) L 03/17/17 06:06 RDW 18.1 % (11.5-14.5) H 03/17/17 06:06 Plt Count 194 K/uL (130-400) 03/17/17 06:06 MPV 9.3 fL (7.2-11.7) 03/17/17 06:06 Neut % (Auto) 74.0 % (50.0-75.0) 03/17/17 06:06 Lymph % (Auto) 20.0 % (20.0-40.0) 03/17/17 06:06 [place] % (Auto) 5.6 % (0.0-10.0) 03/17/17 06:06 Eos % (Auto) 0.1 % (0.0-4.0) 03/17/17 06:06 Baso % (Auto) 0.3 % (0.0-2.0) 03/17/17 06:06 Neut # 8.1 K/uL (1.8-7.0) H 03/17/17 06:06 Lymph # 2.2 K/uL (1.0-4.3) 03/17/17 06:06 [place] # 0.6 K/uL (0.0-0.8) 03/17/17 06:06 Eos # 0.0 K/uL (0.0-0.7) 03/17/17 06:06 Baso # 0.0 K/uL (0.0-0.2) 03/17/17 06:06 Sodium 135 mmol/L (132-148) 03/17/17 06:06 Potassium 3.8 mmol/L (3.6-5.2) 03/17/17 06:06 Chloride 99 mmol/L (98-107) 03/17/17 06:06 Carbon Dioxide 31 mmol/L (22-30) H 03/17/17 06:06 Anion Gap 9 (10-20) L 03/17/17 06:06 BUN 15 mg/dL (7-17) 03/17/17 06:06 Creatinine 0.8 MG/DL (0.7-1.2) 03/17/17 06:06 Est GFR ( Amer) > 60 03/17/17 06:06 Est GFR (Non-Af Amer) > 60 03/17/17 06:06 Random Glucose 102 mg/dL (65-105) 03/17/17 06:06 Calcium 8.3 mg/dl (8.6-10.4) L 03/17/17 06:06 Phosphorus 3.8 mg/dL (2.5-4.5) 03/17/17 06:06 Magnesium 2.0 mg/dL (1.6-2.3) 03/17/17 06:06 Total Bilirubin 0.8 mg/dL (0.2-1.3) 03/17/17 06:06 AST 21 U/L (14-36) 03/17/17 06:06 ALT 20 U/L (9-52) 03/17/17 06:06 Alkaline Phosphatase 96 U/L (38-126) 03/17/17 06:06 Total Protein 6.8 g/dL (6.3-8.3) 03/17/17 06:06 Albumin 3.3 g/dL (3.5-5.0) L 03/17/17 06:06 Globulin 3.5 gm/dL (2.2-3.9) 03/17/17 06:06 Albumin/Globulin Ratio 0.9 (1.0-2.1) L 03/17/17 06:06 Triglycerides 80 mg/dL (0-149) 03/14/17 07:04 Cholesterol 103 mg/dL (0-199) 03/14/17 07:04 LDL Cholesterol Direct 45 mg/dL (0-129) 03/14/17 07:04 HDL Cholesterol 34 mg/dL (30-70) 03/14/17 07:04 Blood Type O POSITIVE 03/13/17 07:41 Antibody Screen Negative 03/13/17 07:41 - Hospital Course Hospital Course: HPI: Patient is a 46 y/o F with past medical hx of left breast cancer, hyperlipidemia, depression, hemorrhoids, left lung tumor, glaucoma, lymphedema, who presents s/p right knee arthroplasty. She states this winter she fell on her right knee and injured it. She reports being a cancer survivor and having a left mastectomy, chemotherapy, and radiation. She reports removal of a tumor on left of abdomen with benign findings, left breast cancer biopsy and mastectomy in 2013 and breast reconstruction. She currently denies any chest pain, SOB, fever, chills, nausea, vomiting, recent travel. She states her knee pain is currently controlled. Hospital course: Patient is a 46 y/o F who presented s/p right knee arthoplasty. Post surgery, her pain was controlled and she remained afebrile with mild leukocytosis. She remained in facility receiving PT. Once medically stable, she was able to be transferred to a rehab facility. She was adised to participate in PT and follow up with her PMD and orthopedic surgeon upon discharge. This is a brief summary of the patient's stay at this facililty. For more detail , see patient's full chart. - Date & Time of H&P Date of H&P: 03/13/17 Time of H&P: 15:52 Discharge Exam - Head Exam Head Exam: NORMAL INSPECTION - Eye Exam Eye Exam: EOMI, Normal appearance, PERRL Pupil Exam: NORMAL ACCOMODATION, PERRL - ENT Exam ENT Exam: Mucous Membranes Moist, Normal Oropharynx - Neck Exam Neck exam: Normal Inspection - Respiratory Exam Respiratory Exam: NORMAL BREATHING PATTERN. absent: Rales, Rhonchi, Wheezes - Cardiovascular Exam Cardiovascular Exam: REGULAR RHYTHM, +S1, +S2. absent: Gallop, Rubs, Systolic Murmur - GI/Abdominal Exam GI & Abdominal Exam: Soft. absent: Tenderness - Extremities Exam Extremities exam: pedal pulses present Additional comments: right leg wrapped and in brace - Back Exam Back exam: NORMAL INSPECTION. absent: rash noted, tenderness - Neurological Exam Neurological exam: CN II-XII Intact, Oriented x3, Reflexes Normal - Psychiatric Exam Psychiatric exam: Normal Affect, Normal Mood - Skin Skin Exam: Dry, Intact, Normal Color, Warm Discharge Plan - Follow Up Plan Condition: GOOD Disposition: REHAB FACILITY/REHAB UNIT Instructions: Pain Management After Surgery (DC), Precautions after Total Joint Replacement Surgery (DC), Knee Replacement (DC) Additional Instructions: You are medically stable for discharge to [facility] facility. Please follow up with your primary care physician and orthopedic surgeon within a week of discharge of leaving rehab. Please resume home medications and take prescriptions as written. Please avoid alcohol, tobacco, or drug use. If your condition worsens or new symptoms arise, please return to the emergency room. Referrals: Preet Sánchez III, MD [Staff Provider] - 1 Week (Dressing right knee to be removed on Wednesday 03/21 and new sterile gauze dressing and rodrick applied Knee immobilizer at night, may remove during day WBAT RLE r/u Dr. Sánchez 7-10 days call for appointment continue aspirin 81mg PO BID) <Yair Cherry - Last Filed: 03/19/17 07:13> Provider - Provider Date of Admission: 03/13/17 06:40 Attending physician: Preet Sánchez III, MD Hospital Course - Lab Results Lab Results: Most Recent Lab Values WBC 10.9 K/uL (4.8-10.8) H 03/17/17 06:06 RBC 3.69 Mil/uL (3.80-5.20) L 03/17/17 06:06 Hgb 9.7 g/dL (11.0-16.0) L 03/17/17 06:06 Hct 29.9 % (34.0-47.0) L 03/17/17 06:06 MCV 80.9 fL (81.0-99.0) L 03/17/17 06:06 MCH 26.2 pg (27.0-31.0) L 03/17/17 06:06 MCHC 32.3 g/dL (33.0-37.0) L 03/17/17 06:06 RDW 18.1 % (11.5-14.5) H 03/17/17 06:06 Plt Count 194 K/uL (130-400) 03/17/17 06:06 MPV 9.3 fL (7.2-11.7) 03/17/17 06:06 Neut % (Auto) 74.0 % (50.0-75.0) 03/17/17 06:06 Lymph % (Auto) 20.0 % (20.0-40.0) 03/17/17 06:06 [place] % (Auto) 5.6 % (0.0-10.0) 03/17/17 06:06 Eos % (Auto) 0.1 % (0.0-4.0) 03/17/17 06:06 Baso % (Auto) 0.3 % (0.0-2.0) 03/17/17 06:06 Neut # 8.1 K/uL (1.8-7.0) H 03/17/17 06:06 Lymph # 2.2 K/uL (1.0-4.3) 03/17/17 06:06 [place] # 0.6 K/uL (0.0-0.8) 03/17/17 06:06 Eos # 0.0 K/uL (0.0-0.7) 03/17/17 06:06 Baso # 0.0 K/uL (0.0-0.2) 03/17/17 06:06 Sodium 135 mmol/L (132-148) 03/17/17 06:06 Potassium 3.8 mmol/L (3.6-5.2) 03/17/17 06:06 Chloride 99 mmol/L (98-107) 03/17/17 06:06 Carbon Dioxide 31 mmol/L (22-30) H 03/17/17 06:06 Anion Gap 9 (10-20) L 03/17/17 06:06 BUN 15 mg/dL (7-17) 03/17/17 06:06 Creatinine 0.8 MG/DL (0.7-1.2) 03/17/17 06:06 Est GFR ( Amer) > 60 03/17/17 06:06 Est GFR (Non-Af Amer) > 60 03/17/17 06:06 Random Glucose 102 mg/dL (65-105) 03/17/17 06:06 Calcium 8.3 mg/dl (8.6-10.4) L 03/17/17 06:06 Phosphorus 3.8 mg/dL (2.5-4.5) 03/17/17 06:06 Magnesium 2.0 mg/dL (1.6-2.3) 03/17/17 06:06 Total Bilirubin 0.8 mg/dL (0.2-1.3) 03/17/17 06:06 AST 21 U/L (14-36) 03/17/17 06:06 ALT 20 U/L (9-52) 03/17/17 06:06 Alkaline Phosphatase 96 U/L (38-126) 03/17/17 06:06 Total Protein 6.8 g/dL (6.3-8.3) 03/17/17 06:06 Albumin 3.3 g/dL (3.5-5.0) L 03/17/17 06:06 Globulin 3.5 gm/dL (2.2-3.9) 03/17/17 06:06 Albumin/Globulin Ratio 0.9 (1.0-2.1) L 03/17/17 06:06 Triglycerides 80 mg/dL (0-149) 03/14/17 07:04 Cholesterol 103 mg/dL (0-199) 03/14/17 07:04 LDL Cholesterol Direct 45 mg/dL (0-129) 03/14/17 07:04 HDL Cholesterol 34 mg/dL (30-70) 03/14/17 07:04 Blood Type O POSITIVE 03/13/17 07:41 Antibody Screen Negative 03/13/17 07:41 Attending/Attestation - Attestation I have personally seen and examined this patient.: Yes I have fully participated in the care of the patient.: Yes I have reviewed all pertinent clinical information, including history, physical exam and plan: Yes Notes (Text): Medical Attending: Patient was seen and examined by me however this is a discharge from a previous week. The patient was S/P knee replacement. She will be going to [facility] for further rehab from here.
--- NOTE | 2017-03-17 12:00 | CP.PCM.PN ---
Subjective - Date & Time of Evaluation Date of Evaluation: 03/17/17 Time of Evaluation: 08:00 - Subjective Subjective: Patient states knee pain is well controlled. She denies any CP/SOB/dizziness. Good appetite. Denies numbness/tingling. Objective - Vital Signs/Intake and Output Vital Signs (last 24 hours): Temp Pulse Resp BP Pulse Ox 97.9 F 80 20 111/77 97 03/17/17 09:24 03/17/17 09:24 03/17/17 09:24 03/17/17 09:24 03/17/17 09:24 Intake and Output: 03/17/17 03/17/17 06:59 18:59 Intake Total 600 Output Total 600 Balance 0 - Medications Medications: Current Medications Albuterol (Ventolin Hfa 90 Mcg/Actuation (8 G)) 2 puff IH RQID PRN PRN Reason: Shortness of Breath Aripiprazole (Abilify) 2 mg PO BID [facility] Last Admin: 03/17/17 09:47 Dose: 2 mg Aspirin (Ecotrin) 81 mg PO Q12 [facility] Last Admin: 03/17/17 09:47 Dose: 81 mg Citalopram Hydrobromide (Celexa) 40 mg PO DAILY [facility] Last Admin: 03/17/17 09:47 Dose: 40 mg Docusate Sodium (Colace) 100 mg PO BID [facility] Last Admin: 03/17/17 09:47 Dose: 100 mg Folic Acid (Folic Acid) 1 mg PO DAILY [facility] Last Admin: 03/17/17 09:46 Dose: 1 mg Hydromorphone HCl (Dilaudid) 0.5 mg IVP Q5M PRN PRN Reason: Pain, severe (8-10) Sodium Chloride (Sodium Chloride 0.9%) 1,000 mls @ 100 mls/hr IV .Q10H [facility] Stop: 03/17/17 18:29 Last Admin: 03/17/17 09:50 Dose: 100 mls/hr Latanoprost (Xalatan Opht) 0 ml OU HS [facility] Last Admin: 03/16/17 22:08 Dose: 1 ml Multivitamins (Hexavitamin) 1 tab PO DAILY [facility] Last Admin: 03/17/17 09:47 Dose: 1 tab Ondansetron HCl (Zofran Inj) 4 mg IVP ONCE PRN PRN Reason: Nausea/Vomiting Last Admin: 03/15/17 12:42 Dose: 4 mg Oxycodone/Acetaminophen (Percocet 5/325 Mg Tab) 2 tab PO Q4H PRN PRN Reason: MODERATE PAIN 6-8 Stop: 03/19/17 17:17 Last Admin: 03/17/17 04:51 Dose: 2 tab Pantoprazole Sodium (Protonix Ec Tab) 40 mg PO DAILY [facility] Last Admin: 03/17/17 09:46 Dose: 40 mg Rosuvastatin Calcium (Crestor) 5 mg PO HS [facility] Last Admin: 03/15/17 22:08 Dose: 5 mg - Labs Labs: 03/17/17 06:06 03/17/17 06:06 - Constitutional Appears: Well, No Acute Distress - Extremities Exam Additional comments: RLE: rodrick changed. Aquacel dressing intact. +ROM ankle/toes, sensation intact, + DP/PT pulses, calves soft NT neg homans. Mild expected swelling to knee. No erythema. Assessment and Plan (1) Primary osteoarthritis of right knee Assessment & Plan: POD#4 s/p right TKR -d/c to [facility] today -orthopedically stable for d/c -Dressing right knee to be removed on Wednesday 03/21 and new sterile gauze dressing and rodrick applied Knee immobilizer at night, may remove during day WBAT RLE r/u Dr. Sánchez 7-10 days call for appointment continue aspirin 81mg PO BID -above d/w Dr. Sánchez, agrees with above Status: Acute
[2017-03-17 13:17] VITALS: BP 106/70; PULSE 97; TEMP 98
== END 2017-03-17 13:48 | DRG 209 ==
LOC: C.9S 03-13 06:40 → C.6T 03-13 16:47
PROVIDERS: ADMIT Orthopaedic Surgery; ATTEND Orthopaedic Surgery
PROC: 0SRC0J9 Replacement of Right Knee Joint with Synthetic Substitute, Cemented, Open Approach (ICD-10-PCS; principal; 2017-03-13 07:45)
DX: M17.11 Unilateral primary osteoarthritis, right knee (principal); E78.5 Hyperlipidemia, unspecified; F31.9 Bipolar disorder, unspecified; D72.829 Elevated white blood cell count, unspecified; D49.1 Neoplasm of unspecified behavior of respiratory system; H40.9 Unspecified glaucoma; Z85.3 Personal history of malignant neoplasm of breast